=== PATIENT | male | born 1955 | race Caucasian/White ===

== ENCOUNTER → 2017-07-16 | Day surgery (SDC) | payer MEDICAID ==
[2014-12-13 07:47] VITALS: BMI 32.3
--- NOTE | 2017-07-16 13:23 | CP.SDSHP ---
Same Day Surgery H & P - History Proposed Procedure: Pt with left parotid mass. Plan US guided FNA. Pre-Op Diagnosis: left parotid mass - Allergies Allergies: Allergies No Known Allergies Allergy (Verified 12/13/14 07:47) - Impression Impression: Pt with a 2 cm left parotid mass. Plan US guided FNA. Pt. Evaluated Today:Candidate for Anesthesia & Procedure: No Short Stay Discharge - Short Stay Discharge Admitting Diagnosis/Reason for Visit: PAROTID MASS
--- NOTE | 2017-07-16 13:25 | PCM.SURG1 ---
Surgeon's Initial Post Op Note - Surgeon's Notes Surgeon: Gilberto Oropeza MD Substation Wireman: NONE Type of Anesthesia: Local Pre-Operative Diagnosis: Left parotid nodule Operative Findings: US showed a hypoechoic 2 cm left parotid nodule Post-Operative Diagnosis: Left parotid nodule Operation Performed: US guided FNA. Four 25 g FNA specimen obtained. Specimen/Specimens Removed: 25 g FNA x 4 Estimated Blood Loss: EBL {In ML}: 1 Blood Products Given: N/A Drains Used: No Drains Post-Op Condition: Good Date of Surgery/Procedure: 07/16/17 Time of Surgery/Procedure: 13:20
--- NOTE | 2017-07-16 16:51 | US ---
PROCEDURE: Date of procedure: 07/16/2017 Procedure: Ultrasound-guided left renal biopsy, CPT 08406 Ultrasound guidance for biopsy, 49[address] HISTORY: Proteinuria TECHNIQUE: Following informed consent and procedure time-out, the patient was placed prone on the interventional table and a limited ultrasound showed slightly echogenic left kidney consistent with medical renal disease. There is no hydronephrosis or mass. The patient left back was prepped and draped in the usual sterile fashion. After patient sedated by the anesthesiologist and the skin anesthetized with lidocaine, an 18 gauge core needle was advanced percutaneously towards the lower pole cortex. Upon confirmation of needle position, three-18 gauge core specimens were obtained and sent for routine pathology. The biopsy tract was then embolized with Gelfoam. A post biopsy ultrasound showed no hematoma. There were no immediate complications. IMPRESSION: Ultrasound-guided left renal biopsy.
== END | disposition home or self-care (01) ==
LOC: C.SPRAD 10:30
PROVIDERS: ATTEND Radiology Vascular & Interventional Radiology
DX: D11.0 Benign neoplasm of parotid gland (principal)